=== PATIENT | female | born 1980 | race American Indian/Alaskan Native ===

== ENCOUNTER 2018-03-02 21:52 | Emergency (ER) | payer SELFPAY ==
[2018-03-02] MEDS ORDERED: LOPRESSOR PO ONE (22:54)
[2018-03-02] MEDS ORDERED: ZESTRIL PO ONE (22:54)
[2018-03-03 03:19] VITALS: BP 141/93
--- NOTE | 2018-03-03 03:24 | Emergency Department Report ---
ED General Adult HPI - General Chief complaint: Headache Stated complaint: HTN/FEVER Time Seen by Provider: 03/03/18 03:20 Source: patient Mode of arrival: Ambulatory Limitations: No Limitations - History of Present Illness Initial comments: 37-year-old -I[place] female with a known history of bipolar and hypertension comes to the emergency room stating that she needs refills on her blood pressure medicine. Patient reports that she's been out of her medicine for blood pressure greater than 2 months. She currently reports that she is on lisinopril 10 mg and metoprolol 25 mg twice a day. She also informed us that she had a fever 2 days and headache but no fever today. Patient came to the triage with a blood pressure of 172/111 with a repeat of 175/104 when she came to fast track. Patient was given at that time her medications of lisinopril 10 mg a metoprolol 25 mg. -: month(s) (>2) Location: head (headache) Severity scale (0 -10): 2 Consistency: intermittent Improves with: none Worsens with: none Treatments Prior to Arrival: none - Related Data Home Medications Medication Instructions Recorded Confirmed Last Taken Doxepin [SINEquan] 50 mg PO QHS 03/02/18 03/02/18 Unknown [place] Carbonate 300 mg PO BID 03/02/18 03/02/18 Unknown Previous Rx's Medication Instructions Recorded Last Taken Type Lisinopril/Hydrochlorothiazide 1 tab PO QDAY #30 tablet 03/03/18 Unknown Rx [Zestoretic 10-12.5 mg] Metoprolol [Lopressor TAB] 25 mg PO BID 30 Days #60 tablet 03/03/18 Unknown Rx Allergies Allergy/AdvReac Type Severity Reaction Status Date / Time fluoxetine HCl [From Prozac] Allergy Unknown Verified 07/28/16 20:49 lurasidone [From Latuda] Allergy Unknown Verified 03/02/18 22:47 paroxetine [From Paxil] Allergy Unknown Verified 03/02/18 22:47 sertraline HCl [From Zoloft] Allergy Unknown Verified 07/28/16 20:49 trazodone Allergy Unknown Verified 07/28/16 20:49 ED Review of Systems ROS: Stated complaint: HTN/FEVER Other details as noted in HPI Constitutional: fever (resolved) Eyes: denies: eye pain, eye discharge, vision change ENT: denies: ear pain, throat pain Neurological: headache (improved) Psychiatric: denies: anxiety, depression Hematological/Lymphatic: denies: easy bleeding, easy bruising ED Past Medical Hx - Past Medical History Hx Hypertension: Yes Hx Psychiatric Treatment: Yes (depression,bipolar) - Surgical History Additional Surgical History: tubiligation - Social History Smoking Status: Never Smoker Substance Use Type: Alcohol - Medications Home Medications: Home Medications Medication Instructions Recorded Confirmed Last Taken Type Doxepin [SINEquan] 50 mg PO QHS 03/02/18 03/02/18 Unknown History [place] Carbonate 300 mg PO BID 03/02/18 03/02/18 Unknown History Lisinopril/Hydrochlorothiazide 1 tab PO QDAY #30 tablet 03/03/18 Unknown Rx [Zestoretic 10-12.5 mg] Metoprolol [Lopressor TAB] 25 mg PO BID 30 Days #60 tablet 03/03/18 Unknown Rx ED Physical Exam - General Limitations: No Limitations General appearance: alert, in no apparent distress - Head Head exam: Present: atraumatic, normocephalic - Eye Eye exam: Present: normal appearance, PERRL, EOMI - ENT ENT exam: Present: mucous membranes moist - Respiratory Respiratory exam: Present: normal lung sounds bilaterally. Absent: respiratory distress - Cardiovascular Cardiovascular Exam: Present: regular rate, normal rhythm. Absent: systolic murmur, diastolic murmur, rubs, gallop - GI/Abdominal GI/Abdominal exam: Present: soft, normal bowel sounds - Extremities Exam Extremities exam: Absent: pedal edema - Neurological Exam Neurological exam: Present: alert, oriented X3 - Psychiatric Psychiatric exam: Present: normal affect, normal mood - Skin Skin exam: Present: warm, dry, intact, normal color. Absent: rash ED Course Vital Signs 03/02/18 03/02/18 03/03/18 22:39 22:54 01:06 Temperature 98 F 98.4 F Pulse Rate 92 H 92 H 89 Respiratory 18 17 Rate Blood Pressure 172/111 172/111 Blood Pressure 175/104 [Left] O2 Sat by Pulse 100 100 Oximetry 03/03/18 03:19 Temperature 98.8 F Pulse Rate 76 Respiratory 17 Rate Blood Pressure Blood Pressure 141/93 [Left] O2 Sat by Pulse 100 Oximetry ED Medical Decision Making - Medical Decision Making Patient has been evaluated by this provider fast track. Patient was given her chronic blood pressure medicine of lisinopril 10 mg and metoprolol 25 mg. Patient blood pressure has improved from 172/111 2 now 141/ 93 with a heart rate of 76 from 92. Will refill patient's medications for 30 days and refer her to [facility] for continuing care for chronic disease management. Critical care attestation.: If time is entered above; I have spent that time in minutes in the direct care of this critically ill patient, excluding procedure time. ED Disposition Clinical Impression: Hypertension Qualifiers: Hypertension type: unspecified Qualified Code(s): I10 - Essential (primary) hypertension Disposition: TO HOME OR SELFCARE Is pt being admited?: No Does the pt Need Aspirin: No Condition: Stable Instructions: Hypertension (ED), DASH Eating Plan (ED), Low Sodium Diet (ED) Additional Instructions: Please take blood pressure medication in behavior medication as prescribed. Please follow up with [facility] for management of her chronic disease. Prescriptions: Lisinopril/Hydrochlorothiazide [Zestoretic 10-12.5 mg] 1 tab PO QDAY #30 tablet Metoprolol [Lopressor TAB] 25 mg PO BID 30 Days #60 tablet Referrals: PRIMARY CARE, [Primary Care Provider] - 3-5 Days [facility] [Provider Group] - 3-5 Days Forms: Work/School Release Form(ED), Accompanied Note
== END 2018-03-03 03:30 | disposition home or self-care (01) ==
LOC: ED 21:52
DX: I10 Essential (primary) hypertension (principal); Z88.8 Allergy status to other drugs, medicaments and biological substances
CPT/HCPCS: 99282

== ENCOUNTER 2019-09-07 17:16 | Emergency (ER) | payer OTHER ==
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
[2019-09-07] MEDS ORDERED: IBUPROFEN 600 MG TAB PO ONE (22:04)
[2019-09-07] MEDS ORDERED: ONDANSETRON 4 MG ODT TAB PO ONE (22:04)
[2019-09-07] MEDS ORDERED: oxyCODONE /ACETAMINOPHEN 5-325MG TAB PO ONE (22:04)
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
[2019-09-08 02:51] VITALS: BP 124/87
== END 2019-09-08 01:30 | disposition home or self-care (01) ==
LOC: ED 17:16
DX: S43.402A Unspecified sprain of left shoulder joint, initial encounter (principal); S63.502A Unspecified sprain of left wrist, initial encounter; S93.402A Sprain of unspecified ligament of left ankle, initial encounter; G44.319 Acute post-traumatic headache, not intractable; J32.0 Chronic maxillary sinusitis; F31.9 Bipolar disorder, unspecified; I10 Essential (primary) hypertension; Z98.51 Tubal ligation status; Z79.899 Other long term (current) drug therapy; Z88.8 Allergy status to other drugs, medicaments and biological substances; V49.49XA Driver injured in collision with other motor vehicles in traffic accident, initial encounter; Y93.89 Activity, other specified; Y92.410 Unspecified street and highway as the place of occurrence of the external cause; Y99.8 Other external cause status
CPT/HCPCS: 36415; 70450; 84703; Q0162